=== PATIENT | female | born 1950 | race Caucasian/White ===

== ENCOUNTER 2019-03-19 17:06 | Outpatient (CLI) | payer MEDICARE, SELFPAY ==
--- NOTE | ~2019-03-19 | US_ITS ---
EXAMINATION: US carotid duplex BI DATE: 03/19/2019 18:29 INDICATION: Transient cerebral intact TECHNIQUE: Grayscale, color Doppler, and pulsed Doppler images of the cervical carotid arteries were obtained. The degree of vessel stenosis is placed in one of the following categories: normal, <50%, 5 0-69%, >=70% but less than near-occlusion, near-occlusion, or total occlusion. Note that percent sten osis relative to normal distal artery lumen diameter is indirectly measured from velocity measurement s as described by David, et al. Radiology 2003; 229:340-346. Notes: Normal: Peak systolic velocity <125 centimeters/sec and no plaque <50%. Peak systolic velocity <125 ( EDV <40; ICA/CCA PSV ratio <2.0; used these factors only a tandem lesions or low cardiac output or co ntralateral disease) 50-69 %: PSV 125-230 (EDV 40-100; ratio 2-4) >= 70% but less than near occlusion: PSV greater than 230 (EDV > 100; ratio> 4.0) Near Occlusion: PSV that is variable; markedly narrowed lumen Occlusion: Absent flow on color/spectral Doppler and no lumen on allen scale. COMPARISON: None. FINDINGS: RIGHT: The right common carotid artery (CCA) peak systolic velocity (PSV) is 91 cm/s. The right internal car otid artery (ICA) PSV is 92 cm/s. The right ICA end-diastolic velocity (EDV) is 32 cm/s. The right IC A/CCA PSV ratio is 1.0. The external carotid artery (ECA) PSV is 65 cm/s. There is antegrade flow in the right vertebral artery. LEFT: The left CCA PSV is 116 cm/s. The left ICA PSV is 95 cm/s. The left ICA EDV is 24 cm/s. The left ICA/ CCA PSV ratio is 0.8. The ECA PSV is 61 cm/s. There is antegrade flow in the left vertebral artery. IMPRESSION: 1. Less than 50% stenosis in the right internal carotid artery by sonographic criteria. 2. Less than 50% stenosis in the left internal carotid artery by sonographic criteria. Reviewed, dictated and finalized at location A. IGN CAR MECHANIC IMPRESSION: 1. Less than 50% stenosis in the right internal carotid artery by sonographic maribel garcia. 2. Less than 50% stenosis in the left internal carotid artery by sonographic randy haas.
--- NOTE | ~2019-03-19 | CT_ITS ---
EXAMINATION: CT BRAIN W/O DATE: 03/19/2019 18:52 INDICATION: TIA. Convulsions. Headache and dizziness. TECHNIQUE: Computed tomography (CT) of the head was performed without and with 100 cc Omnipaque 350 i ntravenous contrast. The dose-length product was 1210.67 mGy-cm. The mA was adjusted according to pat ient size. Iterative reconstruction technique was employed. COMPARISON: No prior studies for comparison. FINDINGS: Normal brain parenchymal volume for age. Normal allen-white differentiation. No acute intrac ranial hemorrhage, infarction, mass or mass effect. No abnormal contrast enhancement. No ventriculomegaly or midline shift. Midline sagittal images demonstrate a normal corpus callosum, c raniovertebral junction and sella turcica. Basilar cisterns are patent. Paranasal sinuses and mastoids are pneumatized. No depressed skull fractures. IMPRESSION: 1. No acute intracranial abnormality. Reviewed, dictated and finalized at location A. AGE TIER
[2019-03-19 18:34] LABS: Blood Urea Nitrogen 26 mg/dL (8-26); Estimated Glomerular Filt Rate 41
== END 2019-03-19 17:07 | disposition home or self-care (01) ==
PROVIDERS: PCP Internal Medicine; Visit Provider Internal Medicine
DX: G45.9 Transient cerebral ischemic attack, unspecified (principal); R56.9 Unspecified convulsions; I65.23 Occlusion and stenosis of bilateral carotid arteries
CPT/HCPCS: 70470; 93880; Q9967

== ENCOUNTER → 2019-05-12 14:09 | Outpatient (CLI) | payer MEDICARE, SELFPAY ==
--- NOTE | ~2019-05-12 | XR_ITS ---
EXAMINATION: XR hip RT min 2V EXAM DATE: 05/12/2019 14:27 INDICATION: No known recent injury provided at this time. Pain of the right hip. TECHNIQUE: Right hip frontal, 'frog leg' projections for interpretation. Comparison is made to prior examination from 12/01/2013. FINDINGS: Smooth right hip femoral head contour, no radiographic evidence of avascular necrosis. The re is mild to moderate primary osteoarthritis. There are no acute fractures or dislocations identifie d. There is no subcutaneous gas. The soft tissue is unremarkable. There are no radiopaque foreign bodies. IMPRESSION: Mild to moderate right hip osteoarthritis. Reviewed, dictated and finalized at location A. NG OPERATOR
== END ==
PROVIDERS: PCP Internal Medicine; Visit Provider Nurse Practitioner Family
DX: M16.11 Unilateral primary osteoarthritis, right hip (principal)
CPT/HCPCS: 73502

== ENCOUNTER 2019-06-17 16:59 | Outpatient (CLI) | payer MEDICARE, SELFPAY ==
--- NOTE | ~2019-06-17 | XR_ITS ---
XR hip BI 2V w AP pelvis 06/17/2019 17:39 Indication: Sciatic and hip pain. Procedure: 4 views of each hip including AP pelvis Comparison: 05/12/2019 Findings: Mild lumbar spondylosis. Sacral foramen are symmetric. There is mild osteoarthritis of the hips. No acute fracture or traumatic malalignment. No focal soft tissue abnormality. No foreign sergio s. Impression: 1: Mild osteoarthritis of the hips. Reviewed, dictated and finalized at location A. Impression: 1: Mild osteoarthritis of the hips.
--- NOTE | ~2019-06-17 | XR_ITS ---
XR lumbar spine 2-3V 06/17/2019 17:39 Indication: Low back pain. Sciatica. Procedure: 3 views lumbar spine Comparison: 12/10/2017 Findings: There has been progression of disc height loss at all lumbar levels. There is grade 1 degen erative spondylolisthesis at L4-5. Moderate multilevel facet hypertrophy. There is mild dextroscolios is. Cholecystectomy clips are present. No fracture or traumatic malalignment. Impression: 1: Progression of moderate lumbar spondylosis. Reviewed, dictated and finalized at location A. Impression: 1: Progression of moderate lumbar spondylosis.
== END 2019-06-17 17:00 | disposition home or self-care (01) ==
PROVIDERS: PCP Internal Medicine; Visit Provider Internal Medicine
DX: M54.41 Lumbago with sciatica, right side (principal); M54.42 Lumbago with sciatica, left side; M47.896 Other spondylosis, lumbar region; M16.0 Bilateral primary osteoarthritis of hip
CPT/HCPCS: 72100; 73521

== ENCOUNTER 2019-06-26 10:36 | Outpatient (CLI) | payer MEDICARE, SELFPAY ==
--- NOTE | ~2019-06-26 | MR_ITS ---
EXAMINATION: MR lumbar spine wo con DATE: 06/26/2019 11:40 INDICATION: Low back pain. Bilateral sciatica. TECHNIQUE: Magnetic resonance imaging (MRI) of the lumbar spine was performed without intravenous con trast. Sequences included sagittal T2-weighted FSE, sagittal T2-weighted FS FSE, sagittal T1-weighted FSE, and axial T2-weighted FSE. COMPARISON: Lumbar spine MRI 01/10/2018 FINDINGS: There is 4 mm anterolisthesis of L4 on L5. Vertebral body heights are normal. There is marine rely decreased disc height at T12-L1 and L1-L2, moderately decreased disc height at L2-L3 and L3-L4, and mildly decreased disc height at L4-L5. The distal spinal cord signal intensity is normal. The con us medullaris is at L1. The following disc levels are specifically discussed: L1-L2: The disc is bulging and has an annular fissure. There is mild bilateral facet joint osteoarthr itis. There is mild bilateral neural foraminal stenosis. There is mild central canal stenosis. L2-L3: The disc is bulging. There is mild bilateral facet joint osteoarthritis. There is mild bilater al neural foraminal stenosis. There is mild central canal stenosis. L3-L4: The disc is bulging and has an annular fissure. There is moderate right and mild left facet amos int osteoarthritis. There is mild bilateral neural foraminal stenosis. There is mild central canal st enosis. L4-L5: The disc is bulging. There is severe bilateral facet joint osteoarthritis. There is mild bilat eral neural foraminal stenosis. There is mild central canal stenosis. L5-S1: The disc is bulging and has an annular fissure. There is severe bilateral facet joint osteoart hritis. There is mild bilateral neural foraminal stenosis. There is mild central canal stenosis. IMPRESSION: 1. Severe lumbar and lower thoracic spondylosis, worsened from 01/10/2018. Reviewed, dictated and finalized at location A.
== END 2019-06-26 10:37 | disposition home or self-care (01) ==
PROVIDERS: PCP Internal Medicine; Visit Provider Internal Medicine
DX: M54.41 Lumbago with sciatica, right side (principal); M54.42 Lumbago with sciatica, left side; M47.896 Other spondylosis, lumbar region; M47.894 Other spondylosis, thoracic region
CPT/HCPCS: 72148

== ENCOUNTER 2019-07-31 12:17 | Outpatient (CLI) | payer MEDICARE, SELFPAY ==
--- NOTE | ~2019-07-31 | XR_ITS ---
XR chest 2V DATE: 07/31/2019 12:44 INDICATION: Shortness of breath TECHNIQUE: PA and lateral views chest COMPARISON: 06/29/2014 PA and lateral chest FINDINGS: Heart size is within normal range. No hilar or mediastinal enlargement. No pulmonary infilt rate or consolidation, pleural effusion or pulmonary vascular congestion or pneumothorax. Surgical clips, right upper quadrant, consistent with cholecystectomy Degenerative changes of the thoracic spine. IMPRESSION: No active cardiopulmonary disease Reviewed, dictated and finalized at location A.
== END 2019-07-31 12:18 | disposition home or self-care (01) ==
LOC: ANHIMG 12:22
PROVIDERS: PCP Internal Medicine; Visit Provider Internal Medicine
DX: R06.02 Shortness of breath (principal)
CPT/HCPCS: 71046

== ENCOUNTER 2019-11-17 12:23 | Outpatient (CLI) | payer MEDICARE, SELFPAY ==
[2019-11-17 12:41] LABS: Basophils Absolute Auto 0.1 K/mm3 (0.0-0.1); Basophils Percent Auto 0.8 % (0.2-1.2); Eosinophils Absolute Auto 0.3 K/mm3 (0-0.3); Hematocrit 42.4 % (37.0-47.0); Hemoglobin 13.9 g/dL (12.0-15.0); Immature Granulocyte Absolute 0.02 K/mm3 (0.00-0.031); Immature Granulocyte Percent A 0.3 % (0-0.5); Lymphocytes Absolute Auto 2.12 K/mm3 (0.9-3.2); Lymphocytes Percent Auto 27.1 % (18.3-44.2); Mean Corpuscular HGB Conc 32.8 g/dl (32-36); Mean Corpuscular Hemoglobin 30.2 pg (26-34); Mean Corpuscular Volume 92.2 fl (80-100); Mean Platelet Volume 12.3 fl (7.4-10.4); Monocytes Absolute Auto 0.9 K/mm3 (0.1-0.6); Monocytes Percent Auto 11.1 % (2.6-8.5); Neutrophils Absolute Auto 4.4 K/mm3 (1.3-6.7); Neutrophils Percent Auto 56.7 % (45.5-73.1); Platelet Count Result 220 k/mm3 (150-375); Red Cell Distribution Width 13.2 % (11.5-14.5); White Blood Count 7.8 K/mm3 (4.5-10.0)
[2019-11-17 12:52] LABS: Alanine Aminotransferase 28 U/L (4-35); Alkaline Phosphatase 94 U/L (38-126); Anion Gap 6 mmol/L (8-16); Aspartate Amino Transferase 27 U/L (14-36); Bilirubin,Total 0.4 mg/dL (0.2-1.3); Blood Urea Nitrogen 35 mg/dL (7-17); Calcium 9.8 mg/dL (8.4-10.2); Carbon Dioxide 30 mmol/L (22-30); Chloride 101 mmol/L (98-107); Estimated Glomerular Filt Rate 50; Glucose 84 mg/dL (65-105); Lactate Dehydrogenase 358 U/L (313-618); Potassium 4.1 mmol/L (3.4-5.0); Sodium 137 mmol/L (137-145)
== END 2019-11-17 12:24 | disposition home or self-care (01) ==
LOC: ANHLAB 12:26
PROVIDERS: PCP Internal Medicine; Visit Provider Internal Medicine
DX: R59.1 Generalized enlarged lymph nodes (principal)
CPT/HCPCS: 36415; 80053; 83615; 85025

== ENCOUNTER 2019-11-17 15:22 | Outpatient (CLI) | payer MEDICARE, SELFPAY ==
--- NOTE | ~2019-11-17 | XR_ITS ---
EXAMINATION: XR cervical spine min 6V EXAM DATE: 11/17/2019 16:09 INDICATION: Cervicalgia Neck pain. Headache. Bilateral pain. TECHNIQUE: Cervical spine frontal, lateral, lateral flexion, lateral extension, and open-mouth odont oid projections. Comparison is made to prior examination from 09/14/2015. FINDINGS: There is moderate to severe loss of the disc heights from C3 through C7. Vertebral bodies a re aligned on the lateral projections. There is some cervical straightening. Evidence of advanced mid cervical arthropathy, slightly more bulky on the left. The odontoid process is intact. The lateral masses of C1 line up with C2. Prevertebral soft tissue and pre-dens space are within normal limits. D ifficult to appreciate significant interval change compared to 2016. IMPRESSION: Advanced cervical spondylosis. Reviewed, dictated and finalized at location A.
== END 2019-11-17 15:23 | disposition home or self-care (01) ==
PROVIDERS: PCP Internal Medicine; Visit Provider Internal Medicine
DX: M54.2 Cervicalgia (principal); M47.812 Spondylosis without myelopathy or radiculopathy, cervical region
CPT/HCPCS: 36415; 72052; 80053; 83615; 85025

== ENCOUNTER 2019-12-07 10:58 | Outpatient (CLI) | payer MEDICARE, SELFPAY ==
--- NOTE | ~2019-12-07 | CT_ITS ---
EXAMINATION: CT soft tissue neck w con DATE: 12/07/2019 11:42 INDICATION: Localized swelling, mass, lump, neck. TECHNIQUE: Computed tomography (CT) of the neck was performed with 75 mL Omnipaque-350 intravenous co ntrast. Automated exposure control and iterative reconstruction technique were employed. The dose-eugenia gth product was 481.39 mGy-cm. COMPARISON: None FINDINGS: There are no pathologically enlarged lymph nodes. There is 0% stenosis of the proximal inte rnal carotid arteries relative to normal distal artery lumen diameters. The paranasal sinuses are radha ar. The mastoid air cells are normal. There is severe cervical spondylosis. IMPRESSION: 1. No abnormal mass or lymphadenopathy. Reviewed, dictated and finalized at location A.
== END 2019-12-07 10:59 | disposition home or self-care (01) ==
PROVIDERS: PCP Internal Medicine; Visit Provider Internal Medicine
DX: R22.1 Localized swelling, mass and lump, neck (principal)
CPT/HCPCS: 70491; Q9967

== ENCOUNTER 2021-10-10 00:10 | Day surgery (SDC) | payer MEDICARE, SELFPAY ==
[2021-09-22 10:52] VITALS: BMI 36.3
[2021-10-10 10:48] VITALS: BP 143/69; PULSE 53; RESP 16; TEMP 36.5; O2SAT 95; BMI 36.3
[2021-10-10] MEDS: LACTATED RINGERS 1,000 ML 150 ML IV CONT (10:59)
--- NOTE | 2021-10-10 11:26 | PM.IMHP ---
H&P: HPI History of Present Illness Date/Time: 10/10/21 11:26 Chief Complaint: Dysphagia. Neoplasia screening. Narrative: This is a 70-year-old white female patient presents for EGD and colonoscopy. Over recent months patient is notice food catching in the low to mid portion of the sternum. This happens with both check in and liquids. She denies any weight loss. She has had no bleeding. She notices slow passage of food through this area. Does notice occasional infrequent heartburn. She takes no specific medication for this family history is noncontributory. Patient has a distant history of colon polyps many years ago. Most recent colonoscopy 10 years ago was unremarkable. Review of Systems Review of Systems: review of systems noncontributory. [facility] Past Medical History Medical History (Updated 10/10/21 @ 11:28 by Jonathan Cole MD) Anxiety with depression Benign essential hypertension BMI 36.0-36.9,adult BMI 37.0-37.9, adult BMI 38.0-38.9,adult Body mass index (BMI) 40.0-44.9, adult Cervicalgia Chronic back pain Dysphagia Edema Elevated homocysteine Encounter for general adult medical examination with abnormal findings Encounter for routine adult health examination without abnormal findings Encounter for screening mammogram for malignant neoplasm of breast Follow up Hx of colonic polyps Hyperlipidemia Hypotension Hypothyroidism (acquired) Localized swelling, mass and lump, neck Metabolic syndrome On shelter drug therapy Orthostatic hypotension Seizure SOB (shortness of breath) TIA (transient ischemic attack) Vitamin D deficiency Weakness Family History Family History Mother Family history of chronic obstructive pulmonary disease, Onset Age: 81 Family history of lung cancer Family history of emphysema, Onset Age: 81 Patient's mother is Father Family history of lung cancer Patient's father is Grandparent Family history of cardiovascular disease Family history of heart disease in male family member before age 55 Other Diabetes mellitus Family history of malignant neoplasm Social History Social History Smoking status: Never smoker Alcohol intake: current Drinks per week: 1 Living arrangements: with family Spiritual care concerns: No Meds Home Medications and Allergies Home Medications Medication Instructions Recorded Confirmed Type aspirin 81 mg tablet,delayed 81 mg PO DAILY 03/19/19 10/10/21 History release (Adult Low Dose Aspirin) mecobalamin (vitamin B12) 1,000 1,000 mcg sublingual DAILY 01/26/20 10/10/21 History mcg disintegrating tablet,sublingual multivitamin with minerals 1 tablet PO DAILY 07/08/20 10/10/21 History (Hair,Skin and Nails tablet) vitamins A,C,E-kgmd-hcpwdu 14,320 1 cap PO BID 07/08/20 10/10/21 History unit-226 mg-200 unit capsule (PreserVision AREDS) diclofenac sodium 75 mg See Rx Instructions .Route 10/18/20 10/10/21 Rx tablet,delayed release .COMPLEX #180 tabs venlafaxine 100 mg tablet See Rx Instructions .Route 12/08/20 10/10/21 Rx .COMPLEX #180 tabs atorvastatin 80 mg tablet See Rx Instructions .Route 12/19/20 10/10/21 Rx .COMPLEX #90 tabs escitalopram oxalate 20 mg tablet See Rx Instructions .Route 12/23/20 10/10/21 Rx .COMPLEX #90 tabs semaglutide 7 mg tablet (Rybelsus) 7 mg PO DAILY #90 tabs 06/05/21 10/10/21 Rx ezetimibe 10 mg tablet (Zetia) 10 mg PO DAILY #90 tabs 06/15/21 10/10/21 Rx candesartan 32 See Rx Instructions .Route 09/01/21 10/10/21 Rx mg-hydrochlorothiazide 12.5 mg .COMPLEX #90 tabs tablet sodium sul 1.479 gram-potas ch See Rx Instructions PO PER PKG DIR 09/04/21 10/10/21 Rx 0.188 gram-magnes sul 0.225 gram #24 tabs tablet (Sutab) levothyroxine 100 mcg tablet See Rx Instructions .Route 09/19/21 10/10/21 Rx .COMPLEX #90 tabs Allergi
--- NOTE | 2021-10-10 11:34 | WPDANESEPPF ---
Anes - Initial Pre Proc Eval Procedure: Operation Date: 10/10/21 12:30 Proposed Procedures p Esophagogastroduodenoscopy & Screening Colonoscopy - Jonathan Cole MD Date/Time: 10/10/21 11:34 Surgeon: Jonathan Cole MD Pre Op Diagnosis: hx of colon polyps, dysphagia Patient Data Age: 70 Gender: F Height: 1.57 m Weight: 90 kg Last Vital Signs Temp 97.7 F 10/10/21 10:48 Pulse 53 L 10/10/21 10:48 Resp 16 10/10/21 10:48 BP 143/69 H 10/10/21 10:48 Pulse Ox 95 10/10/21 10:48 O2 Del Method Room Air 10/10/21 10:48 Allergies Allergy/AdvReac Type Severity Reaction Status Date / Time RAKEL Inhibitors Allergy Unknown Cough Verified 10/10/21 10:46 Sulfa (Sulfonamide Allergy Unknown Hives Verified 10/10/21 10:46 Antibiotics) sulfanilamide Allergy Unknown Hives Verified 10/10/21 10:46 Home Medications Medication Instructions Recorded Confirmed Type aspirin 81 mg tablet,delayed 81 mg PO DAILY 03/19/19 10/10/21 History release (Adult Low Dose Aspirin) mecobalamin (vitamin B12) 1,000 1,000 mcg sublingual DAILY 01/26/20 10/10/21 History mcg disintegrating tablet,sublingual multivitamin with minerals 1 tablet PO DAILY 07/08/20 10/10/21 History (Hair,Skin and Nails tablet) vitamins A,C,S-gwdb-upkyvs 14,320 1 cap PO BID 07/08/20 10/10/21 History unit-226 mg-200 unit capsule (PreserVision AREDS) diclofenac sodium 75 mg See Rx Instructions .Route 10/18/20 10/10/21 Rx tablet,delayed release .COMPLEX #180 tabs venlafaxine 100 mg tablet See Rx Instructions .Route 12/08/20 10/10/21 Rx .COMPLEX #180 tabs atorvastatin 80 mg tablet See Rx Instructions .Route 12/19/20 10/10/21 Rx .COMPLEX #90 tabs escitalopram oxalate 20 mg tablet See Rx Instructions .Route 12/23/20 10/10/21 Rx .COMPLEX #90 tabs semaglutide 7 mg tablet (Rybelsus) 7 mg PO DAILY #90 tabs 06/05/21 10/10/21 Rx ezetimibe 10 mg tablet (Zetia) 10 mg PO DAILY #90 tabs 06/15/21 10/10/21 Rx candesartan 32 See Rx Instructions .Route 09/01/21 10/10/21 Rx mg-hydrochlorothiazide 12.5 mg .COMPLEX #90 tabs tablet sodium sul 1.479 gram-potas ch See Rx Instructions PO PER PKG DIR 09/04/21 10/10/21 Rx 0.188 gram-magnes sul 0.225 gram #24 tabs tablet (Sutab) levothyroxine 100 mcg tablet See Rx Instructions .Route 09/19/21 10/10/21 Rx .COMPLEX #90 tabs Patient hx anesthesia problems: none Family hx anesthesia problems: none Results Review: All pre-operative results and documents have been reviewed as part of the pre-operative evaluation. [facility] Past Medical History Medical History (Updated 10/10/21 @ 11:28 by Jonathan Cole MD) Anxiety with depression Benign essential hypertension BMI 36.0-36.9,adult BMI 37.0-37.9, adult BMI 38.0-38.9,adult Body mass index (BMI) 40.0-44.9, adult Cervicalgia Chronic back pain Dysphagia Edema Elevated homocysteine Encounter for general adult medical examination with abnormal findings Encounter for routine adult health examination without abnormal findings Encounter for screening mammogram for malignant neoplasm of breast Follow up Hx of colonic polyps Hyperlipidemia Hypotension Hypothyroidism (acquired) Localized swelling, mass and lump, neck Metabolic syndrome On terminal gauger drug therapy Orthostatic hypotension Seizure SOB (shortness of breath) TIA (transient ischemic attack) Vitamin D deficiency Weakness Family History Family History Mother Family history of chronic obstructive pulmonary disease, Onset Age: 81 Family history of lung cancer Family history of emphysema, Onset Age: 81 Patient's mother is Father Family history of lung cancer Patient's father is Grandparent Family history of cardiovascular disease Family history of heart disease in male family member before age 55 Other Diabetes mellitus Family history of malignant neoplasm Social History Social H
--- NOTE | 2021-10-10 12:11 | SUR.OPER ---
EGD ENDED 1204, COLONOSCOPY STARTED 1210
[2021-10-10 12:31] VITALS: BP 99/66; PULSE 77; RESP 17; O2SAT 95
[2021-10-10 12:41] VITALS: BP 106/67; PULSE 67; RESP 15; O2SAT 99
[2021-10-10 12:51] VITALS: BP 116/68; PULSE 67; RESP 16; O2SAT 99
== END 2021-10-10 13:05 | disposition home or self-care (01) ==
PROVIDERS: PCP Internal Medicine; Visit Provider Internal Medicine Gastroenterology
PROC: 0DJ08ZZ Inspection of Upper Intestinal Tract, Via Natural or Artificial Opening Endoscopic (ICD-10-PCS; CPT 43235; principal; 2021-10-10 12:30)
DX: Z12.11 Encounter for screening for malignant neoplasm of colon (principal); K64.8 Other hemorrhoids; R13.19 Other dysphagia; Z86.010 Personal history of colon polyps; E03.9 Hypothyroidism, unspecified; Z79.82 Long term (current) use of aspirin; E55.9 Vitamin D deficiency, unspecified; I10 Essential (primary) hypertension; M54.2 Cervicalgia; R60.0 Localized edema; E78.5 Hyperlipidemia, unspecified; E88.81 Metabolic syndrome and other insulin resistance; Z86.73 Personal history of transient ischemic attack (TIA), and cerebral infarction without residual deficits; R06.02 Shortness of breath; E66.9 Obesity, unspecified; Z68.36 Body mass index [BMI] 36.0-36.9, adult
CPT/HCPCS: 43450; 43235; G0105; J2704; J7120

== ENCOUNTER 2022-03-01 08:30 | Observation (INO) | payer MEDICARE, SELFPAY ==
[2022-03-01] VITALS (10 sets, daily range): BP systolic 99–125; BP diastolic 50–69; PULSE 60–85; RESP 11–20; TEMP 36.1–36.4; O2SAT 97–100; BMI 34.3
--- NOTE | ~2022-03-01 | CT_ITS ---
Noncontrast CT scan of the cervical spine Technique: Multiple contiguous axial [address] images of the cervical spine were obtained and rec onstructed in 2D sagittal and coronal planes on the acquisition scanner. Dose reduction technique was used on this scan by utilizing automated exposure control, adjustment of the mA and/or kV according to patient size. Clinical History: Pain Findings: No fractures or dislocations. There is advanced degenerative disc narrowing throughout the cervical spine. There is advanced left-sided facet arthropathy at C2-C3, with probable left neural f oraminal narrowing at this level. There is bilateral facet arthropathy at C3 and C4, with bilateral n eural foraminal narrowing, right worse than left. There is left-sided facet arthropathy at C4-C5, wit h probable mild bilateral neural foraminal narrowing. There is probable mild central canal stenosis a t C3-C4, C4-C5, and C5-C6. No prevertebral soft tissue swelling. Impression: No fracture or subluxation of the cervical spine. Degenerative changes, as detailed above. Reviewed, dictated and finalized at location . ING AID DISPENSER Impression: No fracture or subluxation of the cervical spine. Degenerative changes, as detailed above.
--- NOTE | ~2022-03-01 | MR_ITS ---
EXAMINATION: MR cervical spine wo/w con DATE: 03/02/2022 07:15 INDICATION: Neck pain. TECHNIQUE: Magnetic resonance imaging (MRI) of the cervical spine was performed without and with 17 m L MultiHance intravenous contrast. COMPARISON: CT cervical spine 03/01/2022 FINDINGS: There is mild kyphosis of cervical spine. Vertebral body heights are normal. There is mildl y decreased disc height at C2-C3 and severely decreased disc height from C3-C4 through C6-C7 with end plate remodeling. The spinal cord signal intensity is normal. The following disc levels are specifica lly discussed: C2-C3: The disc does not extend beyond the endplate margin. There is mild right and severe left uncov ertebral joint osteoarthritis. There is mild right and severe left facet joint osteoarthritis. There is mild left neural foraminal stenosis. There is no central canal stenosis. C3-C4: The disc is bulging. There is severe bilateral uncovertebral joint osteoarthritis. There is se mela right and moderate left facet joint osteoarthritis. There is severe right and moderate left neur al foraminal stenosis. There is mild central canal stenosis with ventral indentation of the spinal co rd. C4-C5: The disc is bulging. There is severe bilateral uncovertebral joint osteoarthritis. There is mo derate right facet joint osteoarthritis. There is ankylosis of left facet joint with severe hypertrop hy. There is moderate bilateral neural foraminal stenosis. There is mild central canal stenosis. C5-C6: The disc is bulging. There is severe bilateral uncovertebral joint osteoarthritis. There is mi ld bilateral facet joint osteoarthritis. There is moderate bilateral neural foraminal stenosis. There is mild central canal stenosis. C6-C7: The disc is bulging. There is severe bilateral uncovertebral joint osteoarthritis. There is mi ld bilateral facet joint osteoarthritis. There is moderate right and mild left neural foraminal steno sis. There is mild central canal stenosis. C7-T1: There is a left central extrusion. There is no uncovertebral joint osteoarthritis. There is mi ld bilateral facet joint osteoarthritis. There is no neural foraminal stenosis. There is no central c anal stenosis. IMPRESSION: 1. Severe cervical spondylosis. Reviewed, dictated and finalized at location A. D LOGISTICS COORDINATOR
--- NOTE | ~2022-03-01 | CT_ITS ---
EXAMINATION: CT brain wo con DATE: 03/01/2022 09:35 INDICATION: Left arm numbness. TECHNIQUE: Computed tomography (CT) of the head was performed without intravenous contrast. The mA wa s adjusted according to patient size. Iterative reconstruction technique was employed. The dose-lengt h product was 605.33 mGy-cm. COMPARISON: Head CT 03/19/2019 FINDINGS: There is no intracranial hemorrhage, acute infarction, or abnormal intracranial mass lesion . The ventricles are normal in size. There is mild mucosal thickening in the ethmoid sinuses. The mas toid air cells are normal. The orbits are normal. IMPRESSION: 1. Normal brain. Reviewed, dictated and finalized at location A. C DEPARTMENT CHAIR IMPRESSION: 1. Normal brain.
--- NOTE | ~2022-03-01 | CT_ITS ---
CT ANGIOGRAM NECK AND HEAD History: TIA. Technique: Serial spiral axial images through the head and neck were obtained during arterial phase I V injection of 100 cc of Omnipaque 350. 3-D postprocessing and MIP images were then reconstructed on the remote workstation. Dose reduction technique was used on this scan by utilizing automated exposur e control and iterative reconstruction technique. The dose-length product (DLP) was 970.94 mGy-cm. CTA neck findings: Bilateral common carotid, internal carotid, and external carotid arteries are pat ent. No significant plaque identified. The proximal right internal carotid artery demonstrates 0% wilbur nosis relative to the normal distal artery lumen diameter. The proximal left internal carotid artery demonstrates 0% stenosis relative to the normal distal artery lumen diameter. Bilateral vertebral arteries are patent. CTA head findings: Distal vertebral arteries, basilar artery, and posterior cerebral arteries are pat ent. Distal internal carotid arteries, middle cerebral arteries, and anterior cerebral arteries are p atent. No large vessel occlusion. No stenosis or aneurysm. Impression: Unremarkable exam. No significant arterial vascular abnormality seen. Reviewed, dictated and finalized at location M. SAWYER Impression: Unremarkable exam. No significant arterial vascular abnormality seen.
--- NOTE | ~2022-03-01 | MR_ITS ---
EXAMINATION: MR brain/brain stem wo con DATE: 03/01/2022 16:18 INDICATION: Transient ischemic episode including headache and weakness TECHNIQUE: Magnetic resonance imaging (MRI) of the brain and brainstem was performed without intraven ous contrast. Sequences included sagittal and axial T1-weighted SE, axial diffusion-weighted FS SE, a xial T2*-weighted GRE, axial 3D SWAN, axial T2-weighted FLAIR, and axial T2-weighted FSE. Apparent di ffusion coefficient (ADC) maps were created. COMPARISON: Head CT and CT angiogram dated 03/01/2022 FINDINGS: There are no areas of restricted diffusion to suggest acute infarction. No intracranial hemorrhage or abnormal intracranial mass lesion. There are no intraparenchymal signal abnormalities seen on the ot her pulse sequences. The ventricles are symmetric and normal in size. There are no abnormal extra-axi al fluid collections. Flow voids are seen in the cerebral arteries on the T2-weighted sequences consi stent with their expected patency. Mild mucoperiosteal thickening at the bilateral ethmoid sinuses. V isualized orbits and soft tissues are unremarkable. IMPRESSION: 1. Normal brain. No acute intracranial process. Reviewed, dictated and finalized at location B. OGRAPHER'S MODEL
--- NOTE | ~2022-03-01 | US_ITS ---
EXAMINATION: US carotid duplex BI DATE: 03/01/2022 14:18 INDICATION: Transient ischemic episode with the similar cephalad and hemiparesis affecting unspecifie d side. TECHNIQUE: Grayscale, color Doppler, and pulsed Doppler images of the cervical carotid arteries were obtained. The degree of vessel stenosis is placed in one of the following categories: normal, <50%, 5 0-69%, >=70% but less than near-occlusion, near-occlusion, or total occlusion. Note that percent sten osis relative to normal distal artery lumen diameter is indirectly measured from velocity measurement s as described by David, et al. Radiology 2003; 229:340-346. COMPARISON: 03/29/2019 FINDINGS: RIGHT: The right common carotid artery (CCA) peak systolic velocity (PSV) is 72 cm/s. The right internal car otid artery (ICA) PSV is 74 cm/s. The right ICA end-diastolic velocity (EDV) is 31 cm/s. The right IC A/CCA PSV ratio is 1.0. Grayscale and color Doppler images yield an estimate of <50% diameter reducti on from plaque in the ICA. The external carotid artery (ECA) PSV is 63 cm/s. There is antegrade flow in the right vertebral artery. LEFT: The left CCA PSV is 65 cm/s. The left ICA PSV is 67 cm/s. The left ICA EDV is 29 cm/s. The left ICA/C CA PSV ratio is 1.0. Grayscale and color Doppler images yield an estimate of <50% diameter reduction from plaque in the ICA. The ECA PSV is 54 cm/s. There is antegrade flow in the left vertebral artery. IMPRESSION: 1. <50% stenosis from minimal plaque in the right internal carotid artery. 2. <50% stenosis from minimal plaque in the left internal carotid artery. Reviewed, dictated and finalized at location B. R UP FOLDING
--- NOTE | 2022-03-01 08:42 | ECG_ITS ---
Measurements Intervals [place] Rate: 67 P: 0 [place]: 193 QRS: -4 QRSD: 83 T: 48 QT: 400 QTc: 425 Interpretive Statements SINUS RHYTHM NORMAL ECG NO PREVIOUS ECG AVAILABLE FOR COMPARISON Electronically Signed On 03-01-2022 13:40:40 SECURITIES SUPERVISOR by Edwrad Segura M.D.
[2022-03-01 09:02] LABS: Basophils Absolute Auto 0.1 K/mm3 (0.0-0.1); Basophils Percent Auto 0.9 % (0.2-1.2); Eosinophils Absolute Auto 0.4 K/mm3 (0-0.3); Eosinophils Percent Auto 5.5 % (0-4.4); Hematocrit 39.2 % (37.0-47.0); Hemoglobin 12.8 g/dL (12.0-15.0); Immature Granulocyte Absolute 0.03 K/mm3 (0.00-0.031); Immature Granulocyte Percent A 0.4 % (0-0.5); Lymphocytes Absolute Auto 1.56 K/mm3 (0.9-3.2); Lymphocytes Percent Auto 19.8 % (18.3-44.2); Mean Corpuscular HGB Conc 32.7 g/dl (32-36); Mean Corpuscular Hemoglobin 30.3 pg (26-34); Mean Corpuscular Volume 92.9 fl (80-100); Mean Platelet Volume 11.8 fl (7.4-10.4); Monocytes Absolute Auto 0.8 K/mm3 (0.1-0.6); Monocytes Percent Auto 10.7 % (2.6-8.5); Neutrophils Absolute Auto 4.9 K/mm3 (1.3-6.7); Neutrophils Percent Auto 62.7 % (45.5-73.1); Platelet Count Result 200 k/mm3 (150-375); Red Blood Count 4.22 M/mm3 (4.2-5.4); Red Cell Distribution Width 13.8 % (11.5-14.5); White Blood Count 7.9 K/mm3 (4.5-10.0)
[2022-03-01 09:10] LABS: Partial Thromboplastin Time 25.2 SECONDS (22.3-36.8); Prothrombin Time 12.2 Seconds (11.1-14.7)
[2022-03-01 09:12] LABS: Alanine Aminotransferase 39 U/L (6-35); Albumin Level 4.1 g/dL (3.5-5.1); Alkaline Phosphatase 107 U/L (38-126); Anion Gap 5 mmol/L (8-16); Aspartate Amino Transferase 41 U/L (14-36); Bilirubin,Total 0.4 mg/dL (0.2-1.3); Blood Urea Nitrogen 28 mg/dL (7-17); Carbon Dioxide 29 mmol/L (22-30); Chloride 101 mmol/L (98-107); Estimated CRCL calculation 47 ml/min; Estimated Glomerular Filt Rate 55; Glucose 98 mg/dL (65-110); Sodium 135 mmol/L (137-145)
[2022-03-01 09:24] LABS: Troponin I < 0.012 ng/mL (0.000-0.034)
--- NOTE | 2022-03-01 09:51 | ED.NEUROSD ---
HPI - Neuro Symptoms/Deficit General Chief Complaint: Headache Stated Complaint: numbness right arm yesterday Time Seen by Provider: 03/01/22 08:36 History of Present Illness HPI Narrative: Pt had episode of numbness in left side of face and numbness and heaviness in left arm and hand yesterday about 330 pm which resolved after 3-4 minutes and was followed by a [facility]. Pt has had this in the past to a degree but was more brief. Pt says the symptoms have all resolved and remain resolved. Pt has never had this worked up. Related Data Home Medications Medication Instructions Recorded Confirmed aspirin 81 mg tablet,delayed 81 mg PO DAILY 03/19/19 03/01/22 release (Adult Low Dose Aspirin) mecobalamin (vitamin B12) 1,000 1,000 mcg PO DAILY 01/26/20 03/01/22 mcg disintegrating tablet,sublingual multivitamin with minerals 1 tablet PO DAILY 07/08/20 03/01/22 (Hair,Skin and Nails tablet) vitamins A,C,B-avpm-njvuev 14,320 1 cap PO DAILY 07/08/20 03/01/22 unit-226 mg-200 unit capsule (PreserVision AREDS) atorvastatin 80 mg tablet 80 mg PO DAILY 03/01/22 03/01/22 diclofenac sodium 75 mg 75 mg PO DAILY 03/01/22 03/01/22 tablet,delayed release escitalopram oxalate 20 mg tablet 20 mg PO DAILY 03/01/22 03/01/22 levothyroxine 100 mcg tablet 100 mcg PO DAILY 03/01/22 03/01/22 venlafaxine 100 mg tablet 100 mg PO BID 03/01/22 03/01/22 Allergies Allergy/AdvReac Type Severity Reaction Status Date / Time RAKEL Inhibitors Allergy Unknown Cough Verified 03/01/22 15:55 Sulfa (Sulfonamide Allergy Unknown Hives Verified 03/01/22 15:55 Antibiotics) sulfanilamide Allergy Unknown Hives Verified 03/01/22 15:55 Review of Systems Review of Systems: All systems reviewed & are unremarkable except as noted in HPI and below PMFSH Past Medical History Medical History (Updated 03/01/22 @ 15:43 by Brandee Garner NP) Anxiety with depression Benign essential hypertension BMI 35.0-35.9,adult BMI 36.0-36.9,adult BMI 37.0-37.9, adult BMI 38.0-38.9,adult Body mass index (BMI) 40.0-44.9, adult Cervicalgia Chronic back pain Dysphagia Edema Elevated homocysteine Encounter for general adult medical examination with abnormal findings Encounter for hepatitis C screening test for low risk patient Encounter for routine adult health examination without abnormal findings Encounter for screening mammogram for malignant neoplasm of breast Follow up History of gastric ulcer Hx of colonic polyps Hyperlipidemia Hypotension Hypothyroidism (acquired) Localized swelling, mass and lump, neck Metabolic syndrome On [facility] drug [facility] Orthostatic hypotension Seizure SOB (shortness of breath) TIA (transient ischemic attack) Vitamin D deficiency Weakness Surgical History Surgical History (Updated 03/01/22 @ 15:23 by Brandee Garner NP) H/O rectal polypectomy H/O shoulder surgery kimberley rotator H/O tubal ligation History of appendectomy History of cardiac catheterization History of carpal tunnel release History of uterine suspension procedure Hx of cholecystectomy Family History Family History Mother Family history of chronic obstructive pulmonary disease, Onset Age: 81 Family history of lung cancer Family history of emphysema, Onset Age: 81 Patient's mother is Father Family history of lung cancer Patient's father is Grandparent Family history of cardiovascular disease Family history of heart disease in male family member before age 55 Other Diabetes mellitus Family history of malignant neoplasm Social History Social History (Updated 03/01/22 @ 15:24 by Brandee Garner NP) Social History: The patient is and has 2 children. The patient continues to work at least 2 days a week at the [employer]. The patient occasionally has a glass a wine. She is a lifelong nonsmoker. She does not use any marijuana or illicit drugs.
--- NOTE | 2022-03-01 13:12 | PM.IMHP ---
H&P: HPI History of Present Illness Date/Time: 03/01/22 13:12 Chief Complaint: Numbness to arm Narrative: This is a 71-year-old female patient who has had a history of service telogen the past. The patient came to the emergency room complaining of left-sided facial numbness and heaviness his left arm and hand since yesterday around 3:30 p.m.. This result after 3-4 minutes. Then she had a headache. The patient stated that she has had similar episodes in the past but it resolved quickly. The patient does take a daily aspirin. She stated that she did take all of her morning medication. The patient stated that she really does not want to stay in the hospital but did agree to stay overnight for workup. CT cervical spine CT shows no fracture subluxation of the cervical spine. Degenerative changes. Carotid Doppler showed less than 50% of the right and left internal carotid artery. Head and neck CT were read as the followingDistal vertebral arteries, basilar artery, and posterior cerebral arteries are patent. Distal internal carotid arteries, middle cerebral arteries, and anterior cerebral arteries are patent. No large vessel occlusion. No stenosis or aneurysm. Impression: Unremarkable exam. No significant arterial vascular abnormality seen. Head CT was seen as normal brain per Radiology. Troponin was nonreactive. Patient was negative for influenza A/B and COVID. The patient is being admitted to observation status on the date of service of 03/01/2022. Review of Systems Review of Systems: See HPI All systems reviewed & are unremarkable except as noted in HPI and below Constitutional: Constitutional: Reports as per HPI and Reports no additional constitutional complaints Eyes: Eyes: Reports as per HPI and Reports no additional eye complaints ENT: Reports system reviewed and no additional complaints, except as documented and Reports Normal hearing present Cardiovascular: Cardiovascular: Reports no additional cardiovascular complaints Respiratory: Respiratory: Reports no additional respiratory complaints and Reports no additional respiratory complaints Gastrointestinal: Gastrointestinal: Reports as per HPI and Reports no additional gastrointestinal complaints Musculoskeletal: Musculoskeletal: Reports no additional musculoskeletal complaints Integumentary/Breasts: Skin/Breast: Reports system reviewed and no additional complaints, except as docu and Reports as per HPI Neurologic: Reports system reviewed and no additional complaints, except as documented, Reports as per HPI and Reports Normal hearing present Psychiatric: Psychiatric: Reports no additional psychiatric complaints and Reports as per HPI Endocrine: Endocrine: Reports no additional endocrine complaints Hematologic/Lymphatic: Hematologic/Lymphatic: Reports no additional hematologic/lymphatic complaints Allergic/Immunologic: Allergic/Immunologic: Reports no additional allergic/immunologic complaints [facility] Past Medical History Medical History (Updated 03/01/22 @ 15:43 by Brandee Garner NP) Anxiety with depression Benign essential hypertension BMI 35.0-35.9,adult BMI 36.0-36.9,adult BMI 37.0-37.9, adult BMI 38.0-38.9,adult Body mass index (BMI) 40.0-44.9, adult Cervicalgia Chronic back pain Dysphagia Edema Elevated homocysteine Encounter for general adult medical examination with abnormal findings Encounter for hepatitis C screening test for low risk patient Encounter for routine adult health examination without abnormal findings Encounter for screening mammogram for malignant neoplasm of breast Follow up History of gastric ulcer Hx of colonic polyps Hyperlipidemia Hypotension Hypothyroidism (acquired) Localized swelling, mass and lump, neck Metabolic syndrome On rn long term care drug therapy Orthostatic hypotension Seizure SOB (shortness of breath) TIA (transient ischemic attack) Vitamin D deficiency Weakness Surgical History Surgical History (Updated 03/01
[2022-03-01 13:55] LABS: Influenza A QL RT-PCR Negative (Negative); Influenza B QL RT-PCR Negative (Negative); SARS-CoV-2 RNA PCR Negative
[2022-03-01] MEDS: ACETAMINOPHEN 325 MG TABLET 650 MG PO ×2 (18:11→21:26)
--- NOTE | 2022-03-01 19:24 | ADMGEN ---
This patient, Natasha Stewart, was admitted to 2 Medical Room 259-01. Patient/family oriented to hospital policies and general routines including ID bracelet, bed and alarms, visiting hours, pain management, procedures, bathroom and other care routines, personal items, smoking policy, room service/diet, and visiting hours. Information on how to activate the Rapid Response Team has been discussed. Patient/Family are encouraged to report perceived risks to care and to ask questions if they do not understand what they are told or what they should do.
--- NOTE | 2022-03-02 | ECHO_ITS ---
Patient Info Name: Natasha Stewart Age: 71 years : 1950 Gender: Female Ht: 62 in Wt: 187 lbs BSA: 1.96 m2 HR: 65 bpm BP: 105 / 59 mmHg Heart Rhythm: Sinus Rhythm Exam Date: 03/02/2022 8:43 AM Exam Location: [facility] Patient Status: Outpatient Admit Date: 03/01/2022 Staff Ordering Physician: Brandee Garner NP Civil Rights Representative: Benny Rowe RDCS, RT Attending Provider: Arianne Booth DO Referring Physician: Patsy SAENZ; Exam Type: CA echo doppler color flow Study Info Indications G45.8 - Other transient cerebral ischemic attacks and related syndromes Complete two-dimensional, color flow and Doppler transthoracic echocardiogram is performed. Strain analysis performed. Summary 1. Complete two-dimensional, color flow and Doppler transthoracic echocardiogram is performed. 2. Unremarkable echocardiogram with good right and left ventricular systolic function. 3. Normal valvular function. 4. Sinus rhythm. 5. No likely cardioembolic source was identified. Left Ventricle Left ventricular chamber dimension is normal. Left ventricular systolic function is normal, estimated at 65-70%. The left ventricular diastolic function is normal. Right Ventricle Right ventricular chamber dimension is normal. Left Atria Left atrial chamber dimension is normal. Right Atria Right atrial chamber dimension is normal. Aortic Valve The aortic valve is normal. Pulmonic Valve The pulmonic valve is normal. Mitral Valve The mitral valve has normal leaflets. Tricuspid Valve The tricuspid valve leaflets are normal. Pericardium/Pleural The pericardium appears normal. Aorta The aortic root size at the sinus of Valsalva is normal. Left Ventricular Outflow Tract Name Value Normal LVOT Doppler LVOT Peak Gradient 8 mmHg LVOT Mean Gradient 5 mmHg LVOT VTI 34 cm LVOT VTI/AV VTI Ratio 1.0 Mitral Valve Name Value Normal MV Doppler MV Decel Morrill 286 cm/s2 MV PHT 70 ms MV Area (PHT) 3.1 cm2 4.0-5.0 MV Diastolic Function MV E Peak Velocity 70 cm/s MV A Peak Velocity 80 cm/s MV E/A 0.9 MV Decel Time 243 ms MV Annular TDI MV E/e' (Septal) 8.8 <=8.0 MV E/e' (Lateral) 8.1 <=8.0 MV E/e' (Average) 8.4 Tricuspid Valve Name Value Normal
[2022-03-02 04:43] VITALS: BP 105/59; PULSE 67; RESP 20; TEMP 36.5; O2SAT 99
[2022-03-02 06:20] LABS: Basophils Absolute Auto 0.1 K/mm3 (0.0-0.1); Basophils Percent Auto 0.9 % (0.2-1.2); Eosinophils Absolute Auto 0.4 K/mm3 (0-0.3); Eosinophils Percent Auto 6.7 % (0-4.4); Hematocrit 37.1 % (37.0-47.0); Immature Granulocyte Absolute 0.02 K/mm3 (0.00-0.031); Immature Granulocyte Percent A 0.3 % (0-0.5); Lymphocytes Absolute Auto 1.96 K/mm3 (0.9-3.2); Lymphocytes Percent Auto 33.6 % (18.3-44.2); Mean Corpuscular HGB Conc 32.3 g/dl (32-36); Mean Corpuscular Hemoglobin 30.3 pg (26-34); Mean Corpuscular Volume 93.7 fl (80-100); Monocytes Absolute Auto 0.6 K/mm3 (0.1-0.6); Monocytes Percent Auto 9.6 % (2.6-8.5); Neutrophils Absolute Auto 2.9 K/mm3 (1.3-6.7); Neutrophils Percent Auto 48.9 % (45.5-73.1); Platelet Count Result 175 k/mm3 (150-375); Red Blood Count 3.96 M/mm3 (4.2-5.4); Red Cell Distribution Width 13.7 % (11.5-14.5); White Blood Count 5.8 K/mm3 (4.5-10.0)
[2022-03-02 06:38] LABS: Alanine Aminotransferase 35 U/L (6-35); Albumin Level 3.5 g/dL (3.5-5.1); Alkaline Phosphatase 101 U/L (38-126); Anion Gap 2 mmol/L (8-16); Aspartate Amino Transferase 34 U/L (14-36); Bilirubin,Total 0.5 mg/dL (0.2-1.3); Blood Urea Nitrogen 20 mg/dL (7-17); Calcium 8.9 mg/dL (8.4-10.2); Carbon Dioxide 30 mmol/L (22-30); Chloride 104 mmol/L (98-107); Estimated CRCL calculation 47 ml/min; Estimated Glomerular Filt Rate 55; Glucose 86 mg/dL (65-110); Magnesium 1.8 mg/dL (1.6-2.3); Potassium 3.8 mmol/L (3.4-5.0); Sodium 136 mmol/L (137-145)
[2022-03-02] MEDS: LEVOTHYROXINE SODIUM 100 MCG TABLET PO (06:42)
--- NOTE | 2022-03-02 07:45 | PM.IMPN ---
Progress Note: A&P Assessment and Plan (1) Brain TIA: Code(s): G45.9 - Transient cerebral ischemic attack, unspecified Status: Acute Assessment and Plan: Resolved, follow-up neuro consultation, foraminal narrowing at C2 through C3 noted, appreciate neurosurgical consultation (2) Migraine: Code(s): G43.909 - Migraine, unspecified, not intractable, without status migrainosus Status: Acute Assessment and Plan: Resolved (3) Anxiety with depression: Code(s): F41.8 - Other specified anxiety disorders Status: Acute Assessment and Plan: Stable, continue Lexapro (4) Hypothyroidism (acquired): Code(s): E03.9 - Hypothyroidism, unspecified Status: Acute Assessment and Plan: Check TSH, continue levothyroxine (5) Cervicalgia: Code(s): M54.2 - Cervicalgia Status: Acute Assessment and Plan: Continue diclofenac, appreciate neurosurgical consultation for cervical stenosis (6) Hyperlipidemia: Qualifiers: Hyperlipidemia type: mixed hyperlipidemia Qualified Code(s): E78.2 - Mixed hyperlipidemia Code(s): E78.5 - Hyperlipidemia, unspecified Status: Acute Assessment and Plan: Continue statin (7) Benign essential hypertension: Code(s): I10 - Essential (primary) hypertension Status: Acute Assessment and Plan: Continue with candesartan and hydrochlorothiazide Plan DVT prophylaxis with SCDs GI prophylaxis not indicated Code status full code Subjective Date/time seen: 03/02/22 07:45 Interval history: No overnight events noted. No chest pain or shortness of breath. No nausea, vomiting or diarrhea. No fevers or chills. Review of Systems Review of Systems: 12 point review of systems was assessed and was negative except as noted in the HPI Exam Narrative: General: No acute distress, alert and oriented per baseline HEENT: Atraumatic, normocephalic, mucous membranes moist CV: Regular rate and rhythm, S1, S2 Lungs: Clear to auscultation bilaterally, no rales or crackles noted, no wheezes, good air entry Abdomen: Soft, nontender, nondistended Extremities: Normal to inspection Skin: No rashes noted, no lesions or wounds seen Psych: Euthymic, normal affect Objective Data Vital Signs Vital Signs: Vital Signs - 24 hr 03/01/22 08:33 03/01/22 11:59 03/01/22 12:01 Temperature 96.9 F L Pulse Rate 85 60 70 Respiratory Rate 18 16 16 Blood Pressure 125/69 104/57 L 103/55 L Pulse Oximetry 98 100 100 Oxygen Delivery Room Air 03/01/22 12:16 03/01/22 12:31 03/01/22 13:45 Temperature Pulse Rate 70 72 66 Respiratory Rate 16 16 16 Blood Pressure 100/56 L 113/55 L 106/60 Pulse Oximetry 100 97 98 Oxygen Delivery 03/01/22 14:20 03/01/22 14:31 03/01/22 15:01 Temperature Pulse Rate 64 65 65 Respiratory Rate 16 11 L 13 Blood Pressure 113/52 L 99/50 L 105/52 L Pulse Oximetry 100 100 100 Oxygen Delivery 03/01/22 19:26 03/01/22 19:42 03/02/22 04:43 Temperature 97.5 F L 97.7 F Pulse Rate 64 67 Respiratory Rate 20 20 Blood Pressure 99/55 L 105/59 L Pulse Oximetry 100 99 Oxygen Delivery Room Air Intake/Output Intake/Output: Intake & Output 02/27/22 02/28/22 03/01/22 03/02/22 23:59 23:59 23:59 23:59 Intake Total 540 390 Output Total 750 600 Balance -210 -210 Meds/Results Medications: Active Medications Generic Name Dose Route Start Last Admin Trade Name Angela PRN Reason Stop Dose Admin Acetaminophen 650 mg 03/01/22 18:00 03/01/22 21:26 Acetaminophen 325 Mg Tablet PO 650 mg Q4H PRN Administration Mild Pain (1-3) or Fever Aspirin 81 mg 03/02/22 09:00 Aspirin 81 Mg Enteric Tablet PO DAILY COUNTS INCLUDE 234 BEDS AT THE [facility] Atorvastatin Calcium 80 mg 03/02/22 09:00 Atorvastatin 40 Mg Tablet PO DAILY COUNTS INCLUDE 234 BEDS AT THE [facility] Candesartan Cilexetil 16 mg 03/02/22 09:00 Candesartan Cilexetil 16 Mg Tablet PO QAM COUNTS INCLUDE 234 BEDS AT THE [facility] [place]
[2022-03-02 08:01] LABS: Folic Acid 5.7 ng/mL (2.76->20)
[2022-03-02] MEDS: ATORVASTATIN 40 MG TABLET 80 MG PO (08:35)
[2022-03-02] MEDS: VENLAFAXINE HCL 75 MG TABLET BY MOUTH (08:35)
[2022-03-02] MEDS: CANDESARTAN CILEXETIL 16 MG TABLET PO (08:35)
[2022-03-02] MEDS: ESCITALOPRAM OXALATE 10 MG TABLET 20 MG PO (08:36)
[2022-03-02] MEDS: VENLAFAXINE HCL 25 MG TABLET BY MOUTH (08:36)
[2022-03-02] MEDS: ASPIRIN 81 MG ENTERIC TABLET PO (08:36)
[2022-03-02] MEDS: THERAPEUTIC MULTIVITAMINS/MINERALS TAB (*BKC) 1 TABLET PO (08:36)
[2022-03-02] MEDS: DICLOFENAC SOD 75 MG TABLET.EC PO (08:37)
[2022-03-02] MEDS: OPTI-GEN TAB 1 TABLET PO (08:37)
[2022-03-02] MEDS: EZETIMIBE 10 MG TABLET PO (08:37)
[2022-03-02] MEDS: CYANOCOBALAMIN 1,000 MCG TABLET 1000 MCG PO (08:37)
[2022-03-02 08:40] VITALS: BP 105/68
[2022-03-02 12:19] VITALS: BP 114/68; PULSE 66; RESP 18; TEMP 36.5; O2SAT 97
[2022-03-02] MEDS: ACETAMINOPHEN 325 MG TABLET 650 MG PO (12:42)
--- NOTE | 2022-03-02 13:29 | WPDNEUROSGCN ---
Assessment and Plan Assessment and plan (1) Cervical spondylosis without myelopathy: Code(s): M47.812 - Spondylosis without myelopathy or radiculopathy, cervical region Status: Acute Assessment and Plan: patient has spondylotic disease in her cervical spine. I do not think that it is contributing significantly to her complaints. She presented with a transient right upper extremity weakness with some numbness as well as face numbness on the right side. I do think this is more consistent with a TIA. Given her headaches this may also represent a migraine. Patient is not myelopathic. Plan I will see this patient in 3 weeks time in clinic to monitor symptoms I recommended neurology consult given this patient's presentation PMFSH Past Medical History Medical History (Updated 03/02/22 @ 15:24 by Alli Nunez MD) Anxiety with depression Benign essential hypertension BMI 35.0-35.9,adult BMI 36.0-36.9,adult BMI 37.0-37.9, adult BMI 38.0-38.9,adult Body mass index (BMI) 40.0-44.9, adult Cervicalgia Chronic back pain Dysphagia Edema Elevated homocysteine Encounter for general adult medical examination with abnormal findings Encounter for hepatitis C screening test for low risk patient Encounter for routine adult health examination without abnormal findings Encounter for screening mammogram for malignant neoplasm of breast Follow up History of gastric ulcer Hx of colonic polyps Hyperlipidemia Hypotension Hypothyroidism (acquired) Localized swelling, mass and lump, neck Metabolic syndrome On half-way drug therapy Orthostatic hypotension Seizure SOB (shortness of breath) TIA (transient ischemic attack) Vitamin D deficiency Weakness Surgical History Surgical History (Updated 03/01/22 @ 15:23 by Brandee Garner NP) H/O rectal polypectomy H/O shoulder surgery kimberley rotator H/O tubal ligation History of appendectomy History of cardiac catheterization History of carpal tunnel release History of uterine suspension procedure Hx of cholecystectomy Family History Family History Mother Family history of chronic obstructive pulmonary disease, Onset Age: 81 Family history of lung cancer Family history of emphysema, Onset Age: 81 Patient's mother is Father Family history of lung cancer Patient's father is Grandparent Family history of cardiovascular disease Family history of heart disease in male family member before age 55 Other Diabetes mellitus Family history of malignant neoplasm Social History Social History (Updated 03/01/22 @ 15:24 by Brandee Garner NP) Social History: The patient is and has 2 children. The patient continues to work at least 2 days a week at the [employer]. The patient occasionally has a glass a wine. She is a lifelong nonsmoker. She does not use any marijuana or illicit drugs. Her is the durable power hand ii tube bender for healthcare. Code status full code Smoking status: Never smoker Alcohol intake: current Drinks per week: 1 Substance use: never Lack of Transportation: No Lack of Food: Never True Current Housing: I Have Housing Concerned About Future Housing: No Difficulty Paying Gas/Electric Bills: No Difficulty Paying for Meds: No Currently Unemployed: No Education: High School Diploma/GED Difficulty w/ Childcare or Family Care: No Spiritual care concerns: No Meds Home Medications and Allergies Home Medications Medication Instructions Recorded Confirmed Type aspirin 81 mg tablet,delayed 81 mg PO DAILY 03/19/19 03/01/22 History release (Adult Low Dose Aspirin) mecobalamin (vitamin B12) 1,000 1,000 mcg PO DAILY 01/26/20 03/01/22 History mcg disintegrating tablet,sublingual multivitamin with minerals 1 tablet PO DAILY 07/08/20 03/01/22 History (Hair,Skin and Nails tablet) vitamins A,C,E-zin
[2022-03-02 17:10] LABS: Vitamin D 25 Hydroxy 41.7 ng/mL
--- NOTE | 2022-03-14 11:42 | PM.DS ---
DS: Admitting Diagnosis Discharge Date 03/02/22 Admitting Diagnosis Left-sided facial numbness and left arm weakness DS: Discharge Diagnosis Discharge Diagnosis (1) Brain TIA: Code(s): G45.9 - Transient cerebral ischemic attack, unspecified Status: Acute Assessment and Plan: Resolved, follow-up neuro consultation, foraminal narrowing at C2 through C3 noted, appreciate neurosurgical consultation (2) Migraine: Code(s): G43.909 - Migraine, unspecified, not intractable, without status migrainosus Status: Acute Assessment and Plan: Resolved (3) Anxiety with depression: Code(s): F41.8 - Other specified anxiety disorders Status: Acute Assessment and Plan: Stable, continue Lexapro (4) Hypothyroidism (acquired): Code(s): E03.9 - Hypothyroidism, unspecified Status: Acute Assessment and Plan: Check TSH, continue levothyroxine (5) Cervicalgia: Code(s): M54.2 - Cervicalgia Status: Acute Assessment and Plan: Continue diclofenac, appreciate neurosurgical consultation for cervical stenosis (6) Hyperlipidemia: Qualifiers: Hyperlipidemia type: mixed hyperlipidemia Qualified Code(s): E78.2 - Mixed hyperlipidemia Code(s): E78.5 - Hyperlipidemia, unspecified Status: Acute Assessment and Plan: Continue statin (7) Benign essential hypertension: Code(s): I10 - Essential (primary) hypertension Status: Acute Assessment and Plan: Continue with candesartan and hydrochlorothiazide Plan DVT prophylaxis with SCDs GI prophylaxis not indicated Code status full code DS: Summary Hospital Course Hospital Course: 71-year-old female with past medical history significant for hypothyroidism, GERD, hyperlipidemia and anxiety with depression is presenting with left-sided facial numbness and heaviness in left upper extremity that resolved after few minutes. She then noted a headache afterwards. Carotid Dopplers were performed and within normal limits. CT of the brain showed no acute CVA. Neurosurgery was consulted. Symptoms were thought to be secondary to TIA versus migraine. They recommended outpatient follow-up in their clinic as well as neurology consult. Patient was discharged with close outpatient follow-up by Neurology and Neurosurgery for further workup. All symptoms resolved. Time Spent with Patient Time attestation: Total time spent providing and/or coordinating discharge services: Exam Narrative: General: No acute distress, alert and oriented per baseline HEENT: Atraumatic, normocephalic, mucous membranes moist CV: Regular rate and rhythm, S1, S2 Lungs: Clear to auscultation bilaterally, no rales or crackles noted, no wheezes, good air entry Abdomen: Soft, nontender, nondistended Extremities: Normal to inspection Skin: No rashes noted, no lesions or wounds seen Psych: Euthymic, normal affect Discharge Plan Discharge Attending physician on discharge: Arianne Booth Consulting providers: Alli Nunez ; Brandee Garner ; Edward Segura ; Mauricio Riley V. ; Moses Venegas ; Panchito Castellanos ; Noe Bowers Discharging Clinician: Arianne Booth Patient Disposition: Home, Self-Care Activity: as tolerated Diet: as tolerated Patient Instructions: Antibiotic Form Stand Alone Forms: General Discharge Information Follow-up/Referrals: Alli Nunez MD [Physician] - Marcelo Cerrato MD [Primary Care Provider] - Jalen Osman MD [Physician] - Discharge Medications: Continued aspirin [Adult Low Dose Aspirin] 81 mg tablet,delayed release (DR/EC) 81 mg PO DAILY multivitamin with minerals [Hair,Skin and Nails] Tablet 1 tablet PO DAILY PreserVision AREDS [id number] capsule 1 cap PO DAILY Rybelsus 14 mg tablet 14 mg PO DAILY Qty: 90 1RF mecobalamin (vitamin B12) 1,000 mcg tablet,disintegratin
== END 2022-03-02 16:25 | disposition home or self-care (01) ==
LOC: ANHED 12:54 → ANH3MEDSUR 14:33 → ANH2MED 15:39
PROVIDERS: Nurse Practitioner; Admitting Provider Student in an Organized Health Care Education/Training Program; Emergency Provider Emergency Medicine; PCP Internal Medicine; Visit Provider Student in an Organized Health Care Education/Training Program
DX: G45.9 Transient cerebral ischemic attack, unspecified (principal); G43.909 Migraine, unspecified, not intractable, without status migrainosus; I10 Essential (primary) hypertension; F41.8 Other specified anxiety disorders; G89.29 Other chronic pain; M47.812 Spondylosis without myelopathy or radiculopathy, cervical region; M50.30 Other cervical disc degeneration, unspecified cervical region; Z20.822 Contact with and (suspected) exposure to COVID-19; E78.5 Hyperlipidemia, unspecified; E03.9 Hypothyroidism, unspecified; E88.81 Metabolic syndrome and other insulin resistance; E55.9 Vitamin D deficiency, unspecified; F10.90 Alcohol use, unspecified, uncomplicated; Z86.73 Personal history of transient ischemic attack (TIA), and cerebral infarction without residual deficits; Z79.82 Long term (current) use of aspirin; Z79.899 Other long term (current) drug therapy
CPT/HCPCS: 36415; 70450; 70496; 70498; 70551; 72125; 72156; 80053; 82306; 82607; 82746; 83735; 84443; 84484; 85025; 85610; 85730; 87636; 93005; 93306; 93880; 99285; A9270; A9577; G0378; Q9967

== ENCOUNTER 2022-04-03 15:11 | Outpatient (CLI) | payer MEDICARE, SELFPAY ==
[2022-04-03 15:32] LABS: Basophils Absolute Auto 0.1 K/mm3 (0.0-0.1); Basophils Percent Auto 0.7 % (0.2-1.2); Eosinophils Absolute Auto 0.2 K/mm3 (0-0.3); Eosinophils Percent Auto 3.2 % (0-4.4); Hematocrit 40.4 % (37.0-47.0); Hemoglobin 13.1 g/dL (12.0-15.0); Immature Granulocyte Absolute 0.03 K/mm3 (0.00-0.031); Immature Granulocyte Percent A 0.4 % (0-0.5); Lymphocytes Absolute Auto 1.92 K/mm3 (0.9-3.2); Lymphocytes Percent Auto 25.5 % (18.3-44.2); Mean Corpuscular HGB Conc 32.4 g/dl (32-36); Mean Corpuscular Volume 92.4 fl (80-100); Mean Platelet Volume 12.1 fl (7.4-10.4); Monocytes Absolute Auto 0.6 K/mm3 (0.1-0.6); Monocytes Percent Auto 7.7 % (2.6-8.5); Neutrophils Absolute Auto 4.7 K/mm3 (1.3-6.7); Neutrophils Percent Auto 62.5 % (45.5-73.1); Platelet Count Result 211 k/mm3 (150-375); Red Blood Count 4.37 M/mm3 (4.2-5.4); Red Cell Distribution Width 13.4 % (11.5-14.5); White Blood Count 7.5 K/mm3 (4.5-10.0)
[2022-04-03 15:44] LABS: Alanine Aminotransferase 32 U/L (6-35); Albumin Level 3.9 g/dL (3.5-5.1); Alkaline Phosphatase 106 U/L (38-126); Anion Gap 6 mmol/L (8-16); Aspartate Amino Transferase 34 U/L (14-36); Bilirubin,Total 0.5 mg/dL (0.2-1.3); Blood Urea Nitrogen 25 mg/dL (7-17); Calcium 9.2 mg/dL (8.4-10.2); Carbon Dioxide 32 mmol/L (22-30); Chloride 99 mmol/L (98-107); Estimated Glomerular Filt Rate 32; Glucose 98 mg/dL (65-110); Potassium 3.9 mmol/L (3.4-5.0); Sodium 137 mmol/L (137-145)
--- NOTE | 2022-04-06 15:20 | WPDHOLTEREM ---
Holter/Event Monitor Holter/Event Monitor Date of procedure: 04/03/22 Holter/Event Procedure: 48 Hr Holter Monitor Indications: Syncope Conclusion: 1. 48 hour holter monitor on 04/03/22. 2. Underlying rhythm is sinus rhythm. HR range 49-130 bpm; average HR 69 bpm. 3. There are 15 premature supraventricular complexes and 1 supraventricular couplets. No supraventricular tachycardia. 4. No premature ventricular complexes. No ventricular tachycardia. 5. No sinoatrial or atrioventricular blocks. No significant pauses greater than 2 seconds. 6. No symptoms available for correlation.
== END 2022-04-03 15:12 | disposition home or self-care (01) ==
PROVIDERS: PCP Internal Medicine; Visit Provider Internal Medicine
DX: R55 Syncope and collapse (principal)
CPT/HCPCS: 36415; 80053; 85025; 93225; 93226

== ENCOUNTER 2022-05-18 09:50 | Outpatient (CLI) | payer MEDICARE, SELFPAY ==
--- NOTE | ~2022-05-18 | MM_ITS ---
EXAMINATION: MM screening sam BI w dayday HISTORY: Screening mammogram TECHNIQUE: Craniocaudal and mediolateral oblique 3-D tomosynthesis images were obtained and synthetic 2-D images were generated. CAD analysis was submitted and interpreted. COMPARISON: 11/22/2017 bilateral screening mammogram BREAST PARENCHYMAL COMPOSITION: There are scattered areas of fibroglandular density. FINDINGS: There is no evidence of suspicious mass, calcification, or architectural distortion to sugg est malignancy in either breast. There has been no suspicious interval change. IMPRESSION: 1. No mammographic evidence of malignancy. 2. Recommend routine screening mammography in one year. BI-RADS Category 1: Negative Reviewed, dictated and finalized at location B. 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
== END 2022-05-18 09:51 | disposition home or self-care (01) ==
LOC: ANHIMG 09:51
PROVIDERS: PCP Internal Medicine; Visit Provider Internal Medicine
DX: Z12.31 Encounter for screening mammogram for malignant neoplasm of breast (principal)
CPT/HCPCS: 77063; 77067

== ENCOUNTER 2023-03-29 11:51 | Outpatient (CLI) | payer MEDICARE, SELFPAY ==
--- NOTE | ~2023-03-29 | XR_ITS ---
XR lumbar spine 2-3V DATE: 03/29/2023 12:29 INDICATION: Back pain, radiating to knee TECHNIQUE: AP and flexion and extension weightbearing lateral views COMPARISON: None FINDINGS: There is approximately 15 degrees dextroscoliosis of the lumbar spine measured from L2 to L 5. T12 is apparently a nonrib-bearing vertebra. There is severe degenerative disc disease at T12-L1, L1-2 and L2-3 and moderate degenerative disc dis ease at L3-4 and L4-5. L5-S1 interspace is relatively preserved. There is prominent degenerative changes apophyseal joints of the lower lumbar spine, with grade 1 ant erolisthesis, measuring approximately 5 mm in both flexion and extension. No fracture or bone destruction. Included lower thoracic and lumbar pedicles are intact. The sacroiliac joints are intact. Status post cholecystectomy. There is a prominent amount of fecal material in the colon. IMPRESSION: 15 degrees dextroscoliosis Multilevel degenerative disc disease, particularly severe at T12-L1, L1-2 and L2-3 Grade 1 anterolisthesis at L4-5 due to degenerative change at the apophyseal joints Very prominent amount fecal material in colon Reviewed, dictated and finalized at location B. [employer] IMPRESSION: 15 degrees dextroscoliosis Multilevel degenerative disc disease, particularly severe at T12-L1, L1-2 and L 2-3 Grade 1 anterolisthesis at L4-5 due to degenerative change at the apophyseal amos ints Very prominent amount fecal material in colon
--- NOTE | ~2023-03-29 | XR_ITS ---
XR sacroiliac joints min 3V DATE: 03/29/2023 12:29 INDICATION: Back pain TECHNIQUE: AP, bilateral oblique views COMPARISON: None FINDINGS: Normal alignment at the sacroiliac joints. No fracture, dislocation, erosive change or anky losis. There is mild degenerative cyst spurring. IMPRESSION: Mild degenerative spurring at the sacroiliac joints; no erosive change or ankylosis Reviewed, dictated and finalized at [facility]. Reviewed, dictated and finalized at location B. T OFFICE SECRETARY IMPRESSION: Mild degenerative spurring at the sacroiliac joints; no erosive patricia nge or ankylosis
== END 2023-03-29 11:52 | disposition home or self-care (01) ==
PROVIDERS: PCP Internal Medicine; Visit Provider Internal Medicine
DX: M41.86 Other forms of scoliosis, lumbar region (principal); M51.34 Other intervertebral disc degeneration, thoracic region; M43.06 Spondylolysis, lumbar region; M46.1 Sacroiliitis, not elsewhere classified; G89.29 Other chronic pain
CPT/HCPCS: 72100; 72202

== ENCOUNTER 2023-06-10 14:52 | Outpatient (CLI) | payer MEDICARE, SELFPAY ==
--- NOTE | ~2023-06-10 | MM_ITS ---
EXAMINATION: MM screening sam BI w dayday HISTORY: Screening TECHNIQUE: Craniocaudal and mediolateral oblique 3-D tomosynthesis images were obtained and synthetic 2-D images were generated. CAD analysis was submitted and interpreted. COMPARISON: Comparison to multiple prior studies sequentially, with oldest reviewed study dated 11/22. BREAST PARENCHYMAL COMPOSITION: Not dense: There are scattered areas of fibroglandular density. FINDINGS: There is developing nodular asymmetries in the lateral aspect of the right breast. The left breast is stable without evidence for malignancy. IMPRESSION: 1. Developing nodular asymmetries of the right breast. 2. Additional mammographic views and possible breast ultrasound are recommended. BI-RADS Category 0: Incomplete: Needs additional imaging evaluation. Reviewed, dictated and finalized at location A. IMPRESSION: 1. Developing nodular asymmetries of the right breast. 2. Additional mammographic views and possible breast ultrasound are recommended . BI-RADS Category 0: Incomplete: Needs additional imaging evaluation.
== END 2023-06-10 14:53 | disposition home or self-care (01) ==
LOC: ANHIMG 14:54
PROVIDERS: PCP Internal Medicine; Visit Provider Internal Medicine
DX: Z12.31 Encounter for screening mammogram for malignant neoplasm of breast (principal); R92.8 Other abnormal and inconclusive findings on diagnostic imaging of breast
CPT/HCPCS: 77063; 77067

== ENCOUNTER 2023-07-01 11:06 | Outpatient (CLI) | payer MEDICARE, SELFPAY ==
--- NOTE | ~2023-07-01 | MR_ITS ---
EXAMINATION: MR lumbar spine wo con DATE: 07/01/2023 11:36 INDICATION: Lumbar radiculopathy TECHNIQUE: Magnetic resonance imaging (MRI) of the lumbar spine was performed without intravenous con trast. Sequences included sagittal T2-weighted FSE, sagittal T2-weighted FS FSE, sagittal T1-weighted FSE, and axial T2-weighted FSE. COMPARISON: Lumbar spine radiographs dated 03/29/2023 FINDINGS: Mild S-shaped curvature of the lumbar spine with a degree thoracolumbar dextrocurvature and 63 upper lumbar levocurvature. 2 additional 3 mm anterolisthesis L4 on L5. Vertebral body heights are normal. There is severe disc height loss with associated degenerative endplate changes with right-sided predo minance at T12-L1 and L1-L2 and left-sided prominence at L2-L3. Moderate disc height loss at L3-L4 an d L4-5. Mild disc height loss at T11-T12 and L5-S1. There are annular fissures at T12-L1 through L5-S 1. Normal marrow signal. The conus medullaris terminates at L1. There is normal signal in the caudal spinal cord. Paravertebral soft tissues are unremarkable. The following disc levels are specifically discussed: T12-L1: Disc is bulging with superimposed annular fissure and central disc extrusion with disc materi al extending into the right paracentral region 1.3 similar caudal to the level of the superior endpla te of L1. There is mild left and moderate right facet joint osteoarthritis. There is moderate right a nd mild left neural foraminal stenosis. There is mild central canal stenosis with additional mild kendy rowing of the left and right lateral recesses. L1-L2: Disc is bulging with annular fissure. There is mild left and moderate right facet joint osteoa rthritis. There is mild left and moderate right neural foraminal stenosis. There is mild central lucina l stenosis with additional mild narrowing of the left and right lateral recesses. L2-L3: Disc is bulging with annular fissure. There is moderate bilateral facet joint osteoarthritis. There is mild right and moderate left neural foraminal stenosis. There is mild central canal stenosis with additional mild narrowing of the lateral recesses, left greater than right. L3-L4: Disc is bulging with annular fissure. There is moderate bilateral facet joint osteoarthritis. There is mild to moderate bilateral neural foraminal stenosis. There is mild central canal stenosis w ith mild narrowing of the left and right lateral recesses. L4-L5: Disc is bulging with annular fissure and small central disc extrusion with disc material exten ding up to 3 mm cephalad to the level of the inferior endplate of L4. There is severe bilateral facet joint osteoarthritis. There is mild bilateral neural foraminal stenosis. There is moderate central c anal stenosis with moderate narrowing of the left and right lateral recesses. L5-S1: Annular fissure with small central disc protrusion. There is severe bilateral facet joint oste oarthritis. There is mild bilateral neural foraminal stenosis. There is mild central canal stenosis. IMPRESSION: 1. Severe lumbar spondylosis. Reviewed, dictated and finalized at location A.
== END 2023-07-01 11:07 ==
LOC: MICIMG 11:07
PROVIDERS: PCP Internal Medicine; Visit Provider Nurse Practitioner Family
DX: M43.06 Spondylolysis, lumbar region (principal)
CPT/HCPCS: 72148

== ENCOUNTER 2023-07-12 12:13 | Outpatient (CLI) | payer MEDICARE, SELFPAY ==
--- NOTE | ~2023-07-12 | MMUS_ITS ---
EXAMINATION: MM diagnostic sam RT w dayday, US breast RT limited HISTORY: Developing nodular asymmetries reported in right breast on June 10, 2023 screening mammogram examination TECHNIQUE: Additional 3-D tomosynthesis images of the right breast were performed and synthetic 2-D i mages were generated. CAD analysis was submitted and interpreted. High resolution upper outer and low er outer quadrant right breast ultrasound was performed. COMPARISON: June 10, 2023, May 18, 2022 bilateral screening mammogram examinations FINDINGS: MAMMOGRAPHIC FINDINGS: There is nodular appearing fibroglandular stroma upper outer and lower-outer quadrants. Small masses are not excluded. ULTRASOUND: 7:00 3 cm from nipple: 2.1 x 3.3 x 3.1 mm anti-parallel irregular hypoechoic lesion with adjacent vas cularity. Ultrasound-guided biopsy is recommended. 8:00 3 cm from nipple: 3.1 x 2.4 x 3.5 mm mildly irregular circumscribed hypoechoic lesion without in ternal vascularity or posterior features. Ultrasound-guided biopsy is recommended. 9:00 near nipple: 2.6 x 2.3 x 2.7 mm circumscribed relatively sonolucent area without internal vascul arity or posterior shadowing 10:00 4 cm from nipple: Well-circumscribed hypoechoic lesion measuring 3.5 x 2.6 x 4.9 mm, without in ternal vascularity or posterior shadowing 11:00 1 cm from nipple: 2.8 x 2.1 x 2.4 mm hypoechoic area without internal vascularity, with some po sterior shadowing noted IMPRESSION: 1. Suspicious sonographic small lesions at 7:00 3 cm from nipple, 8:00 3 cm from nipple and 11:00 1 c m from nipple 2. Ultrasound-guided biopsy of the 7:00, 8:00 11:00 lesions is recommended BI-RADS category 4, suspicious findings. [facility] telephoned the report and ultrasound guided biopsy recommendations for the right breast a t 7:00, 8:00 and 11:00 on 07/12/[address] Cerrato's voicemail at extension [phone]. Reviewed, dictated and finalized at location A. IMPRESSION: 1. Suspicious sonographic small lesions at 7:00 3 cm from nipple, 8:00 3 cm fro m nipple and 11:00 1 cm from nipple 2. Ultrasound-guided biopsy of the 7:00, 8:00 11:00 lesions is recommended BI-RADS category 4, suspicious findings. [facility] telephoned the report and ultrasound guided biopsy recommendations for the right breast at 7:00, 8:00 and 11:00 on 07/12/[address] Ajith mccabe's voicemail at extension [phone]. IMPRESSION: 1. Suspicious sonographic small lesions at 7:00 3 cm from nipple, 8:00 3 cm fro m nipple and 11:00 1 cm from nipple 2. Ultrasound-guided biopsy of the 7:00, 8:00 11:00 lesions is recommended BI-RADS category 4, suspicious findings. [facility] telephoned the report and ultrasound guided biopsy recommendations for the right breast at 7:00, 8:00 and 11:00 on 07/12/2023 at [address] Ajith mccabe's voicemail at extension [phone].
== END 2023-07-12 12:14 | disposition home or self-care (01) ==
LOC: ANHIMG 12:13
PROVIDERS: PCP Internal Medicine; Visit Provider Internal Medicine
DX: R92.8 Other abnormal and inconclusive findings on diagnostic imaging of breast (principal)
CPT/HCPCS: 76642; 77061; 77065; G0279

== ENCOUNTER 2023-09-23 08:52 | Outpatient (CLI) | payer MEDICARE, SELFPAY ==
--- NOTE | ~2023-09-23 | US_ITS ---
US breast RT limited 09/23/2023 10:07 Indication: Right breast masses seen on prior examination. Biopsy recommended. Procedure: High-resolution Limited ultrasound of the right breast: Comparison: 07/12/2023 Findings: At 11:00, 1 cm from the nipple there is an oval hypoechoic mass with parallel orientation, no posterior features, likely benign. At 8:00, 3 cm from the nipple, there is an oval hypoechoic para llel oriented mass measuring 3 mm, likely benign. At 7:00, 3 cm from the nipple there is an oval hypo echoic mass measuring 2 mm without posterior features, parallel orientation. Biopsy canceled due to p robable benign appearance of the masses. Impression: 1: Probable benign right breast masses located at 7, 8 and 11:00 positions. BI-RADS CATEGORY 3-PROBABLY BENIGN FINDING RECOMMENDATION: 6 month follow up recommended. Reviewed, dictated and finalized at location B. Impression: 1: Probable benign right breast masses located at 7, 8 and 11:00 positions. BI-RADS CATEGORY 3-PROBABLY BENIGN FINDING RECOMMENDATION: 6 month follow up recommended.
== END 2023-09-23 08:53 | disposition home or self-care (01) ==
PROVIDERS: PCP Internal Medicine; Visit Provider Surgery
DX: N63.10 Unspecified lump in the right breast, unspecified quadrant (principal); R92.8 Other abnormal and inconclusive findings on diagnostic imaging of breast
CPT/HCPCS: 76642